=== PATIENT | female | born 1995 | race Caucasian/White ===

== ENCOUNTER 2025-01-27 21:43 | Inpatient (IN) | payer SELFPAY ==
[~2025-01-27] VITALS: Ht 162.6 cm; Wt 56.2 kg
[2025-01-27 22:27] LABS: PLATELET COUNT (AUTO) 325 K/uL (150-450); RED BLOOD CELL COUNT(AUTO) 4.71 MIL/uL (4.00-5.20); RED CELL DISTRIBUTION WIDTH 13.3 % (11.5-14.5); WHITE BLOOD COUNT (AUTO) 11.1 K/uL (4.5-11.0)
[2025-01-27 22:28] LABS: APPEARANCE,URINE HAZY (CLEAR); GLUCOSE, URINE (UA) NEGATIVE (NEGATIVE); LEUKOCYTE ESTERASE ,URINE MODERATE (NEGATIVE); NITRATE,URINE NEGATIVE (NEGATIVE); OCCULT BLOOD,URINE TRACE (NEGATIVE); PH,URINE DRUG SCREEN 5.5 (5.0-8.0); SPECIFIC GRAVITIY, URINE 1.022 (1.003-1.030)
[2025-01-27 22:34] LABS: CALCIUM, TOTAL 9.2 mg/dL (8.8-10.5); CREATININE 1.67 mg/dL (0.60-1.30); GLOMERULAR FILTR. RATE CALC 37.0 mL/min (>60); GLUCOSE,RANDOM 90.0 mg/dL (70-110); SODIUM SERUM 137.0 mmol/L (136-145); UREA NITROGEN, BLOOD 17.0 mg/dL (7-18)
[2025-01-27 22:34] LABS: ALCOHOL, URINE DRUG SCREEN NEGATIVE (NEGATIVE); AMPHET/METH SCREEN,URINE POSITIVE (NEGATIVE); BARBITURATE SCREEN, URINE NEGATIVE (NEGATIVE); CANNABINOID SCREEN,URINE POSITIVE (NEGATIVE); COCAINE SCREEN,URINE POSITIVE (NEGATIVE); METHADONE SCREEN, URINE NEGATIVE (NEGATIVE)
[2025-01-27 22:36] LABS: SQUAMOUS EPITHELIAL CELL,UR Few /LPF (None Seen)
[2025-01-27] MEDS: NALOXONE HCL 1 MG/ML 2 ML SYRINGE IM ONE (23:00)
[2025-01-27] MEDS: SODIUM CHLORIDE 0.9% 1,000 ML IV ONE (23:01)
[2025-01-27] MEDS ORDERED: ACETAMINOPHEN 325 MG TABLET PO PRN (23:30)
[2025-01-27] MEDS ORDERED: NALOXONE HCL 1 MG/ML 2 ML SYRINGE IVP PRN (23:30)
[2025-01-27] MEDS ORDERED: ONDANSETRON HCL 4 MG/2 ML VIAL IVP PRN (23:30)
[2025-01-27] MEDS ORDERED: NALOXONE HCL 10 MG in DEXTROSE 5%-WATER 240 ML IV PRN (23:45)
[2025-01-27] MEDS: RINGERS SOLUTION,LACTATED 1,650 ML IV ONE (23:54)
[2025-01-27] MEDS: FLUMAZENIL 0.1 MG/ML 5 ML VIAL IVP ONE (23:55)
[2025-01-28 00:05] LABS: ABG OXYGEN CONTENT 14.8 mL/dL (15.0-23.0); FRACTIONATED INSPIRED OXYGEN 28.0 % (21-100.0); TEMPERATURE, FAHRENHEIT, BG 98.6 FAHREN (96.0-98.6)
[2025-01-28 00:08] LABS: ABG BASE EXCESS -6.1 mmol/L (-2.0-3.0); ABG CARBOXYHEMOGLOBIN 0.8 % (0.5-1.5); ABG HCO3 19.7 mmol/L (21.0-28.0); ABG METHEMOGLOBIN 0.1 % (0.0-1.5); ABG OXYHEMOGLOBIN 80.2 % (94.0-98.0); ABG PCO2 35 mmHg (32.0-45.0); ABG PH 7.359 (7.350-7.450); ABG TOTAL HEMOGLOBIN 12.9 G/dL (12.0-16.0); SOURCE, BLOOD GAS VENOUS
[2025-01-28 00:09] LABS: ABG OXYGEN SATURATION 80.9 % (94.0-98.0); FLOW, BLOOD GAS 2.00 L/min (0.00-15.00); O2 DEVICE,BLOOD GAS CANNULA (ROOM AIR); PO2, ARTERIAL BG 45.9 mmHg (83.0-108.0); SITE, BLOOD GAS OTHER
[2025-01-28] MEDS: HEPARIN SODIUM,PORCINE 5,000 UNITS/ML VIAL SQ SCH (00:15)
[2025-01-28 00:44] LABS: LACTIC ACID 0.4 mmol/L (0.4-2.0)
[2025-01-28] MEDS: CefTRIAXone 1 GM/DEXTROSE 50 ML IV SCH (02:42)
[2025-01-28 04:30] VITALS: BP 114/73; PULSE 62; PULSE 68; RESP 18; TEMP 97.5; O2SAT 99
[2025-01-28 07:03] LABS: PLATELET COUNT (AUTO) 284 K/uL (150-450); RED BLOOD CELL COUNT(AUTO) 4.20 MIL/uL (4.00-5.20); RED CELL DISTRIBUTION WIDTH 13.3 % (11.5-14.5); WHITE BLOOD COUNT (AUTO) 10.2 K/uL (4.5-11.0)
[2025-01-28 07:13] LABS: CALCIUM, TOTAL 8.0 mg/dL (8.8-10.5); CREATININE 1.02 mg/dL (0.60-1.30); GLOMERULAR FILTR. RATE CALC > 60 mL/min (>60); GLUCOSE,RANDOM 83 mg/dL (70-110); SODIUM SERUM 139 mmol/L (136-145); UREA NITROGEN, BLOOD 14 mg/dL (7-18)
[2025-01-28 08:00] VITALS: BP 112/67; PULSE 72; RESP 15; TEMP 98.2; O2SAT 100
[2025-01-28] MEDS: DOCUSATE SODIUM 100 MG CAPSULE PO SCH (09:00)
[2025-01-28 12:00] VITALS: BP 111/70; PULSE 80; RESP 12; TEMP 97.8; O2SAT 100
[2025-01-28 12:30] LABS: GLUCOMETER DEV NAME(LOC) ICUN.6; GLUCOSE,POINT OF CARE 181 MG/DL (70-110)
[2025-01-28 16:00] VITALS: BP 112/70; PULSE 86; RESP 23; TEMP 97.8; O2SAT 97
[2025-01-28 20:00] VITALS: BP 115/78; PULSE 80; RESP 20; TEMP 97.5; O2SAT 100
[2025-01-29] MEDS ORDERED: SODIUM CHLORIDE 0.9% 250 ML IV ONE (03:29)
[2025-01-29 04:00] VITALS: BP 106/64; PULSE 73; RESP 18; TEMP 97.5; O2SAT 99
[2025-01-29 08:15] VITALS: BP 103/68; PULSE 74; RESP 20; TEMP 98; O2SAT 100
[2025-01-31] MEDS ORDERED: NITR-104 PO (14:26)
== END 2025-01-29 09:20 | disposition left against medical advice (07) | DRG 917 ==
LOC: EMS 21:43 → EDH 23:16 → ICU 01-28 04:12 → 4E 01-28 04:51
PROVIDERS: ADMIT Internal Medicine; ATTEND Internal Medicine
DX: T50.901A Poisoning by unspecified drugs, medicaments and biological substances, accidental (unintentional), initial encounter (principal); G92.9 Unspecified toxic encephalopathy; J96.01 Acute respiratory failure with hypoxia; R79.89 Other specified abnormal findings of blood chemistry; Z53.29 Procedure and treatment not carried out because of patient's decision for other reasons; N17.0 Acute kidney failure with tubular necrosis; Z87.440 Personal history of urinary (tract) infections; Z88.0 Allergy status to penicillin; Y92.89 Other specified places as the place of occurrence of the external cause
CPT/HCPCS: 70450; 74176; 80048; 80307; 81001; 82805; 82962; 83605; 83735; 84145; 84703; 85025; 87040; 87077; 87081; 87086; 87186; 93005; 96361; 96372; 96374; 99291; G0378; G0480; J0696; J1644; J3490; J7050; J7120; 36415-L1; 36415-TC